=== PATIENT | male | born 1990 | race Caucasian/White ===

== ENCOUNTER 2021-08-25 10:55 | Inpatient (IN) | payer OTHER ==
[2021-08-25 11:18] VITALS: BMI 19.0
[2021-08-25] MEDS ORDERED: ONDANSETRON *ODT* 4 MG TABLET SL PRN (11:50)
[2021-08-25] MEDS ORDERED: ACETAMINOPHEN 325 MG TABLET (FP) PO PRN ×2 (11:50)
[2021-08-25] MEDS ORDERED: LORazepam 1 MG TABLET PO PRN (11:50)
[2021-08-25] MEDS ORDERED: MAG HYDROX/AL HYDROX/SIMETH 30 ML UNIT-DOSE CUP PO PRN (11:50)
[2021-08-25] MEDS ORDERED: MAGNESIUM CITRATE 300 ML BOTTLE PO PRN (11:50)
[2021-08-25] MEDS ORDERED: DICYCLOMINE HCL 10 MG CAPSULE PO PRN (11:50)
[2021-08-25] MEDS ORDERED: LOPERAMIDE HCL 2 MG CAPSULE PO PRN (11:50)
[2021-08-25] MEDS ORDERED: NICOTINE 10 MG CARTRIDGE (INHALER) IH PRN (11:50)
[2021-08-25] MEDS ORDERED: MAGNESIUM HYDROX 2400MG/30ML ORAL SUSPENSION 30 ML CUP PO PRN (11:50)
[2021-08-25] MEDS ORDERED: BISMUTH SUBSALICYLATE 262 MG/15 ML BTL PO PRN (11:50)
[2021-08-25] MEDS ORDERED: IBUPROFEN 400 MG TABLET (FP) PO PRN (11:50)
[2021-08-25] MEDS ORDERED: BENZOCAINE/MENTHOL (CHLORASEPTIC ) LOZENGE MM PRN (11:50)
[2021-08-25] MEDS: METHOCARBAMOL 500 MG TABLET PO PRN ×2 (13:53→22:37)
[2021-08-25] MEDS: PRENATAL VITAMINS W/ FOLIC ACID TABLET (FP) PO SCH (13:53)
[2021-08-25] MEDS: hydrOXYzine PAMOATE 25 MG CAPSULE (FP) PO SCH ×3 (13:53→22:37)
[2021-08-25] MEDS: LORazepam 2 MG TABLET PO SCH ×2 (17:42→22:37)
[2021-08-25] MEDS: MELATONIN 5 MG TABLETS PO SCH (22:37)
[2021-08-25] MEDS: THIAMINE HCL 100 MG TABLET (FP) PO SCH (22:37)
[2021-08-26] MEDS: hydrOXYzine PAMOATE 25 MG CAPSULE (FP) PO SCH ×5 (06:16→22:43)
[2021-08-26] MEDS: LORazepam 2 MG TABLET PO SCH ×4 (06:16→22:43)
[2021-08-26 10:11] LABS: HEMATOCRIT 25.3 % (35.4-49); MCH 33.4 pg (25.7-33.7); MCHC 35.3 g/dl (32.0-35.9); MEAN CELL VOLUME 94.4 fl (80-96); MEAN PLT VOLUME 8.3 fl (7.5-11.1); RBC 2.68 M/mm3 (4.00-5.60); WHITE BLOOD COUNT 2.9 K/mm3 (4.0-10.0)
[2021-08-26] MEDS: PRENATAL VITAMINS W/ FOLIC ACID TABLET (FP) PO SCH (10:26)
[2021-08-26] MEDS: NICOTINE 7 MG/24 HOURS TOPICAL PATCH TD SCH (10:28)
[2021-08-26 10:59] LABS: CREATININE 0.4 mg/dL (0.55-1.3)
[2021-08-26 11:00] LABS: TOT PROT 7.6 g/dl (6.4-8.2)
[2021-08-26] MEDS ORDERED: POTASSIUM CHLORIDE ORAL LIQUID 20 MEQ/15 ML PO ONE (11:45)
[2021-08-26] MEDS: FERROUS SO4 325 MG TABLET (FP) PO SCH ×2 (12:02→17:48)
[2021-08-26 12:10] LABS: ALBUMIN 2.8 g/dl (3.4-5.0)
[2021-08-26 13:40] LABS: BILIRUBIN,TOTAL 2.2 mg/dL (0.2-1); BLOOD UREA NITROGEN 5.3 mg/dL (7-18); CALCIUM 8.6 mg/dL (8.5-10.1)
[2021-08-26] MEDS: MELATONIN 5 MG TABLETS PO SCH (22:43)
[2021-08-26] MEDS: THIAMINE HCL 100 MG TABLET (FP) PO SCH (22:43)
[2021-08-26] MEDS: POTASSIUM CHLORIDE ORAL LIQUID 20 MEQ/15 ML PO SCH (22:43)
[2021-08-27] MEDS: hydrOXYzine PAMOATE 25 MG CAPSULE (FP) PO SCH ×5 (06:16→21:59)
[2021-08-27] MEDS: LORazepam 1 MG TABLET PO SCH ×4 (06:17→21:59)
[2021-08-27] MEDS: FERROUS SO4 325 MG TABLET (FP) PO SCH ×3 (07:15→17:43)
[2021-08-27] MEDS: NICOTINE 7 MG/24 HOURS TOPICAL PATCH TD SCH (10:25)
[2021-08-27] MEDS: POTASSIUM CHLORIDE ORAL LIQUID 20 MEQ/15 ML PO SCH ×2 (10:25→21:58)
[2021-08-27] MEDS: PRENATAL VITAMINS W/ FOLIC ACID TABLET (FP) PO SCH (10:25)
[2021-08-27 11:10] LABS: CHLORIDE 103 mmol/L (98-107); SODIUM 136 mmol/L (136-145)
[2021-08-27 11:13] LABS: ALBUMIN 3.2 g/dl (3.4-5.0)
[2021-08-27 11:14] LABS: GLUCOSE,RANDOM 93 mg/dL (74-106)
[2021-08-27 11:16] LABS: CREATININE 0.4 mg/dL (0.55-1.3); IRON SERUM 233 ug/dL (50-175); SGOT/AST 100 U/L (15-37)
[2021-08-27 11:17] LABS: SGPT/ALT 29 U/L (13-61); TOTAL IRON BINDING CAPACITY 241 ug/dL (250-450)
[2021-08-27 11:18] LABS: ANION GAP 6 MMOL/L (8-16); BILIRUBIN,TOTAL 2.6 mg/dL (0.2-1); CALCIUM 9.4 mg/dL (8.5-10.1); CO2 27 mmol/L (21-32); TOT PROT 8.8 g/dl (6.4-8.2)
[2021-08-27 11:19] LABS: ALK PHOS 180 U/L (45-117)
[2021-08-27 11:22] LABS: HEMATOCRIT 29.8 % (35.4-49); HEMOGLOBIN 10.5 GM/dL (11.7-16.9); MCH 33.2 pg (25.7-33.7); MCHC 35.1 g/dl (32.0-35.9); MEAN CELL VOLUME 94.4 fl (80-96); MEAN PLT VOLUME 8.3 fl (7.5-11.1); RBC 3.16 M/mm3 (4.00-5.60); RETICULOCYTES 0.62 % (0.5-1.5); WHITE BLOOD COUNT 3.8 K/mm3 (4.0-10.0)
[2021-08-27 11:50] LABS: BLOOD UREA NITROGEN 2.8 mg/dL (7-18)
[2021-08-27 11:51] LABS: PLATELET COUNT 32 10^3/uL (134-434)
[2021-08-27] MEDS: traZODone HCL 50 MG TABLET (FP) PO SCH (21:58)
[2021-08-27] MEDS: THIAMINE HCL 100 MG TABLET (FP) PO SCH (21:59)
[2021-08-27] MEDS: MELATONIN 5 MG TABLETS PO SCH (21:59)
[2021-08-28] MEDS ORDERED: LORazepam 0.5 MG TABLET PO PRN
[2021-08-28] MEDS: hydrOXYzine PAMOATE 25 MG CAPSULE (FP) PO SCH ×5 (06:27→22:31)
[2021-08-28] MEDS: LORazepam 0.5 MG TABLET PO SCH ×4 (06:27→22:31)
[2021-08-28] MEDS: FERROUS SO4 325 MG TABLET (FP) PO SCH ×3 (08:57→18:00)
[2021-08-28] MEDS: PRENATAL VITAMINS W/ FOLIC ACID TABLET (FP) PO SCH (10:32)
[2021-08-28] MEDS: NICOTINE 7 MG/24 HOURS TOPICAL PATCH TD SCH (10:34)
[2021-08-28] MEDS: THIAMINE HCL 100 MG TABLET (FP) PO SCH (22:31)
[2021-08-28] MEDS: MELATONIN 5 MG TABLETS PO SCH (22:31)
[2021-08-28] MEDS: traZODone HCL 50 MG TABLET (FP) PO SCH (22:31)
[2021-08-28] MEDS: METHOCARBAMOL 500 MG TABLET PO PRN (22:33)
[2021-08-29] MEDS ORDERED: LORazepam 0.5 MG TABLET PO ONE (05:00)
[2021-08-29] MEDS: hydrOXYzine PAMOATE 25 MG CAPSULE (FP) PO SCH (05:40)
[2021-08-29 08:56] VITALS: BP 123/81; PULSE 93; TEMP 97.1
== END 2021-08-29 09:29 | disposition home or self-care (01) | DRG 775 ==
LOC: YASAS 10:55 → Y3N 12:41
PROVIDERS: ADMIT Allergy & Immunology; ATTEND Surgery
PROC: HZ2ZZZZ Detoxification Services for Substance Abuse Treatment (ICD-10-PCS; principal; 2021-08-25)
DX: F10.230 Alcohol dependence with withdrawal, uncomplicated (principal); F12.20 Cannabis dependence, uncomplicated; F17.210 Nicotine dependence, cigarettes, uncomplicated; F41.1 Generalized anxiety disorder; F32.A Depression, unspecified; D61.818 Other pancytopenia; D64.9 Anemia, unspecified; G62.9 Polyneuropathy, unspecified; G40.909 Epilepsy, unspecified, not intractable, without status epilepticus; R26.2 Difficulty in walking, not elsewhere classified; Z91.81 History of falling; Z99.89 Dependence on other enabling machines and devices
CPT/HCPCS: 36415; 80053; 82607; 82746; 83540; 83550; 85027; 85045; 86780; 93005; 93010; C9803-CS; Q0162; U0003; U0005